=== PATIENT | female | born 1960 | race African-American/Black ===

== ENCOUNTER 2020-08-30 10:28 | Inpatient (IN) ==
[2020-08-30] MEDS ORDERED: CeFAZolin Syr 2,000MG/20 ML 2,000 MG/20 ML SYRINGE IVPB ONE (10:42)
[2020-08-30] MEDS ORDERED: Gentamicin 360 MG in 0.9 % Sodium Chloride 100 ML IVPB ONE (10:43)
[2020-08-30] MEDS ORDERED: Ringers Solution, Lactated 1,000 ML IVC SCH ×2 (10:45→23:38)
[2020-08-30] MEDS ORDERED: Famotidine 20 MG/2 ML VIAL IVP ONE (10:48)
[2020-08-30] MEDS ORDERED: Ondansetron ODT 4 MG TAB.RAPDIS SL ONE (10:48)
[2020-08-30] MEDS ORDERED: *HR* OxyCODONE ER (12 HR) 20 MG TABLET PO ONE (11:00)
[2020-08-30] MEDS ORDERED: Lidocaine -MPF 2% 2 ML VIAL ONE (11:58)
[2020-08-30] MEDS ORDERED: Ondansetron 4 MG/2 ML VIAL ONE ×2 (11:58→20:32)
[2020-08-30] MEDS ORDERED: *HR* Succinylcholine 200 MG/10 ML VIAL IVP ONE (11:58)
[2020-08-30] MEDS ORDERED: *HR* Propofol 200 MG/20 ML VIAL IVP ONE ×2 (11:58→21:21)
[2020-08-30] MEDS ORDERED: Povidone-Iodine 45 ML, Sodium Chloride IRRigation 1,000 ML IR ONE (12:30)
[2020-08-30] MEDS ORDERED: TOTAL JOINT MIXTURE (100ML) INTRAART ONE (12:30)
[2020-08-30] MEDS ORDERED: Ketorolac 30 MG/ML VIAL IVP ONE ×2 (12:33→22:59)
[2020-08-30] MEDS ORDERED: *HR* Midazolam HCl 2 MG/2 ML VIAL ONE (12:56)
[2020-08-30] MEDS ORDERED: *HR* FentaNYL (PF) 100 MCG/2 ML VIAL ONE ×2 (12:56→15:13)
[2020-08-30] MEDS ORDERED: Ropivacaine/PF 0.5% 30 ML VIAL ONE (13:00)
[2020-08-30] MEDS ORDERED: ROPIVACAINE/PF/NS 0.25% 1 EACH SYRINGE INTRAART ONE ×2 (13:01→13:02)
[2020-08-30] MEDS ORDERED: Tobramycin Sulf (Sterile) 1.2 GM VIAL ONE (13:31)
[2020-08-30] MEDS ORDERED: Vancomycin 1,000 MG VIAL ONE (13:31)
[2020-08-30] MEDS ORDERED: Ethanol\\Acetic Acid\\Na Ace\\Ben 1,000 ML IRRIG.SOLN IR ONE (13:31)
[2020-08-30] MEDS ORDERED: Lidocaine HCL 4 ML Topical Solution (Laryng-O-Jet Kit Sterile Pak) TP ONE (14:35)
[2020-08-30] MEDS ORDERED: Tranexamic Acid 1,000 MG/10 ML VIAL ONE ×2 (14:40→17:19)
[2020-08-30 15:33] LABS: Source,Synovial Fluid RIGHT KNEE
[2020-08-30] MEDS ORDERED: *HR* HYDROMORPHONE 2 MG/ML VIAL ONE (15:41)
[2020-08-30 17:29] LABS: Appearance,Synovial Fluid Hazy (Clear-Hazy); Color,Synovial Fluid Amber (Straw)
[2020-08-30] MEDS ORDERED: EPHEDrine 50 MG/ML VIAL ONE (17:57)
[2020-08-30 20:36] LABS: Hemoglobin 10.2 g/dL (11.5-15.4)
[2020-08-30] MEDS ORDERED: Albumin Human 5% 12.5 GM/250 ML IV.SOLN IVC SCH (21:00)
[2020-08-30] MEDS ORDERED: Albumin Human 5% 12.5 GM/250 ML IV.SOLN ONE (21:06)
[2020-08-30] MEDS ORDERED: Albumin Human 5% 0 GM/0 ML IV.SOLN ONE (21:07)
[2020-08-30] MEDS ORDERED: MOM Conc 10 ML UD.LIQ PO PRN (23:38)
[2020-08-30] MEDS ORDERED: Morphine Sulfate 2 MG/ML SYRINGE IVP PRN (23:38)
[2020-08-30] MEDS ORDERED: Sennosides 8.6 MG TABLET PO PRN (23:38)
[2020-08-30] MEDS ORDERED: *HR* Promethazine 25 MG/ML VIAL IM PRN (23:38)
[2020-08-30] MEDS ORDERED: Naloxone 0.4 MG/ML INJ IVP PRN (23:38)
[2020-08-31] MEDS: CeFAZolin 2 GM/120 ML BAG IVPB SCH ×3 (03:49→20:17)
[2020-08-31] MEDS: Ketorolac 30 MG/ML VIAL IVP SCH ×3 (05:19→18:13)
[2020-08-31 05:36] LABS: Basophils % 0.1 %; Hematocrit 24.4 % (35.3-44.9); Immature Granulocytes % 0.6 % (0-4); Mean Corpuscular HGB Conc 32.8 g/dL (31.6-35.5); Mean Corpuscular Hemoglobin 28.6 pg (28.0-33.3); Mean Corpuscular Volume 87.1 fL (83.0-100.0); Mean Platelet Volume 11.1 fL (9.4-12.4); Monocytes # 1.3 K/mcL (0.0-1.3); Monocytes % 7.1 %; Neutrophils # 16.6 K/mcL (1.6-8.9); Platelet Count 212 K/mcL (140-400); Red Cell Distribution Width 13.5 % (11.5-14.5); Segmented Neutrophils % 87.2 %
[2020-08-31 05:58] LABS: BUN/Creatinine Ratio 19 (6-26); Blood Urea Nitrogen 15 mg/dL (8-23); Calcium 8.4 mg/dL (8.6-10.3); Carbon Dioxide 22 mEq/L (23-29); Chloride 107 mEq/L (98-107); Glucose 138 mg/dL (70-105); Osmolality,Calculated 289 (280-300); Potassium 4.3 mEq/L (3.5-5.1); Sodium 138 mEq/L (136-145); eGFR For African Americans > 60 (> 60); eGFR For Non-African Americans > 60 (> 60)
[2020-08-31] MEDS: Ascorbic Acid 500 MG TABLET PO SCH ×2 (07:28→16:14)
[2020-08-31] MEDS: Multivit/Ca/Min/Fe/FA 1 TAB TABLET PO SCH (07:28)
[2020-08-31] MEDS: *HR* OxyCODONE Immed Rel 5 MG TABLET PO PRN ×2 (12:41→18:14)
[2020-09-01] MEDS: Ketorolac 30 MG/ML VIAL IVP SCH ×4 (00:14→17:38)
[2020-09-01] MEDS: Aspirin Enteric Coated 81 MG Tablet PO SCH ×2 (00:17→08:06)
[2020-09-01] MEDS: *HR* OxyCODONE Immed Rel 5 MG TABLET PO PRN ×3 (00:19→17:37)
[2020-09-01] MEDS: CeFAZolin 2 GM/120 ML BAG IVPB SCH ×3 (05:06→21:09)
[2020-09-01 06:58] LABS: Basophils % 0.4 %; Eosinophils # 0.3 K/mcL (0.0-0.6); Eosinophils % 3.3 %; Hematocrit 20.6 % (35.3-44.9); Hemoglobin 6.5 g/dL (11.5-15.4); Immature Granulocytes % 0.3 % (0-4); Lymphocytes # 1.8 K/mcL (0.6-4.6); Lymphocytes % 18.2 %; Mean Corpuscular HGB Conc 31.6 g/dL (31.6-35.5); Mean Corpuscular Hemoglobin 27.8 pg (28.0-33.3); Mean Platelet Volume 11.3 fL (9.4-12.4); Monocytes # 1.2 K/mcL (0.0-1.3); Monocytes % 11.5 %; Neutrophils # 6.6 K/mcL (1.6-8.9); Platelet Count 171 K/mcL (140-400); Red Blood Count 2.34 M/mcL (3.82-4.97); Segmented Neutrophils % 66.3 %
[2020-09-01 07:59] LABS: BUN/Creatinine Ratio 24 (6-26); Blood Urea Nitrogen 17 mg/dL (8-23); Carbon Dioxide 24 mEq/L (23-29); Chloride 110 mEq/L (98-107); Glucose 94 mg/dL (70-105); Osmolality,Calculated 295 (280-300); Potassium 3.9 mEq/L (3.5-5.1); Sodium 142 mEq/L (136-145); eGFR For African Americans > 60 (> 60); eGFR For Non-African Americans > 60 (> 60)
[2020-09-01] MEDS: Ascorbic Acid 500 MG TABLET PO SCH ×2 (08:05→16:18)
[2020-09-01] MEDS: Multivit/Ca/Min/Fe/FA 1 TAB TABLET PO SCH (08:07)
[2020-09-01] MEDS: Ondansetron 4 MG/2 ML VIAL IVP PRN ×2 (09:25→17:43)
[2020-09-01] MEDS ORDERED: 0.9 % Sodium Chloride 250 ML ONE (12:25)
[2020-09-01 17:44] LABS: Hematocrit 25.2 % (35.3-44.9)
[2020-09-02] MEDS: Ketorolac 30 MG/ML VIAL IVP SCH ×2 (00:56→04:59)
[2020-09-02] MEDS: *HR* OxyCODONE Immed Rel 5 MG TABLET PO PRN ×3 (01:00→09:58)
[2020-09-02] MEDS: CeFAZolin 2 GM/120 ML BAG IVPB SCH (04:59)
[2020-09-02] MEDS: Multivit/Ca/Min/Fe/FA 1 TAB TABLET PO SCH (09:44)
[2020-09-02] MEDS: Ascorbic Acid 500 MG TABLET PO SCH (09:44)
[2020-09-02] MEDS: Aspirin Enteric Coated 81 MG Tablet PO SCH (09:44)
[2020-09-02 09:58] LABS: Basophils % 0.3 %; Eosinophils # 0.6 K/mcL (0.0-0.6); Eosinophils % 4.8 %; Hematocrit 24.6 % (35.3-44.9); Immature Granulocytes % 0.5 % (0-4); Lymphocytes # 1.7 K/mcL (0.6-4.6); Lymphocytes % 14.6 %; Mean Corpuscular HGB Conc 32.5 g/dL (31.6-35.5); Mean Corpuscular Hemoglobin 28.8 pg (28.0-33.3); Mean Corpuscular Volume 88.5 fL (83.0-100.0); Mean Platelet Volume 10.8 fL (9.4-12.4); Monocytes % 8.7 %; Neutrophils # 8.4 K/mcL (1.6-8.9); Platelet Count 190 K/mcL (140-400); Red Blood Count 2.78 M/mcL (3.82-4.97); Segmented Neutrophils % 71.1 %; White Blood Count 11.9 K/mcL (4.3-11.1)
[2020-09-02 10:17] LABS: BUN/Creatinine Ratio 15 (6-26); Blood Urea Nitrogen 10 mg/dL (8-23); Calcium 8.4 mg/dL (8.6-10.3); Carbon Dioxide 28 mEq/L (23-29); Chloride 106 mEq/L (98-107); Glucose 109 mg/dL (70-105); Osmolality,Calculated 286 (280-300); Potassium 3.9 mEq/L (3.5-5.1); Sodium 138 mEq/L (136-145); eGFR For African Americans > 60 (> 60); eGFR For Non-African Americans > 60 (> 60)
[2020-09-02 10:39] VITALS: BP 124/79; PULSE 96; TEMP 98; O2SAT 97
== END 2020-09-02 11:56 | disposition home or self-care (01) | DRG 468 ==
LOC: SAMDAY 10:28 → 3NENU 23:37
PROVIDERS: ADMIT Orthopaedic Surgery; ATTEND Orthopaedic Surgery